=== PATIENT | male | born 1970 | race Hispanic/Latino ===

== ENCOUNTER 2024-05-25 01:44 | Observation (INO) | payer OTHER, SELFPAY ==
[2024-05-25] VITALS (17 sets, daily range): BP systolic 118–158; BP diastolic 59–98; PULSE 67–87; RESP 12–18; TEMP 36.7–36.8; O2SAT 95–100; BMI 33.7
--- NOTE | 2024-05-25 | ECHO_ITS ---
Patient Info Name: Jass Naik Age: 53 years : 1970 Gender: Male Ht: 66 in Wt: 205 lbs BSA: 2.12 m2 HR: 72 bpm BP: 118 / 79 mmHg Heart Rhythm: Sinus Rhythm Technical Quality: Fair Exam Date: 05/25/2024 9:27 AM Exam Location: Echo Lab Patient Status: Inpatient Admit Date: 05/25/2024 Staff Ordering Physician: Johny Barnes MD Macerator Operator: Rama Lopez RDCS Attending Provider: Johny Barnes MD Exam Type: CA echo doppler w bubble study Study Info Indications - TIA Complete two-dimensional, color flow and Doppler transthoracic echocardiogram is performed with agitated saline. Contrast/Agitated Saline Contrast/Ag. Saline: Agitated Saline Amount: 15.00 ml Administered By: Rin Mariscal RDCS IV Access Condition: patent with no signs of infiltration New IV Access: Antecubital Space and Left Summary 1. Left ventricular chamber dimension is normal. 2. Left ventricular systolic function is normal, estimated at 60-65%. 3. There is mildly increased left ventricular wall thickness. 4. The left ventricular diastolic function is grade I diastolic dysfunction. 5. Right ventricular systolic function is normal. 6. Intact interatrial septum visualized by color flow and agitated saline imaging. Negative bubble study. 7. There is mild mitral valve regurgitation. 8. There is mild tricuspid valve regurgitation. Left Ventricle Left ventricular chamber dimension is normal. Left ventricular systolic function is normal, estimated at 60-65%. There is mildly increased left ventricular wall thickness. The left ventricular diastolic function is grade I diastolic dysfunction. Right Ventricle Right ventricular chamber dimension is normal. Right ventricular systolic function is normal. Left Atria Left atrial chamber dimension is normal. Right Atria Right atrial chamber dimension is normal. Atrial Septum Intact interatrial septum visualized by color flow and agitated saline imaging. Negative bubble study. Aortic Valve The aortic valve is probable trileaflet. There is no aortic valve stenosis. There is no aortic valve regurgitation. Pulmonic Valve The pulmonic valve is not well visualized. There is no pulmonic regurgitation. Mitral Valve There is mild mitral valve regurgitation. Tricuspid Valve There is mild tricuspid valve regurgitation. Pericardium/Pleural There is no pericardial effusion. Inferior Vena Cava Inferior vena cava is not well visualized. Aorta The aortic root size at the sinus of Valsalva is normal. Left Ventricular Outflow Tract Name Value Normal LVOT 2D LVOT Diameter 2.3 cm LVOT Doppler LVOT Peak Gradient 5 mmHg LVOT Mean Gradient 2 mmHg LVOT VTI 20 cm LVOT VTI/AV VTI Ratio 0.8 LVOT Stroke Volume 87 ml LVOT CO 6.1 l/min LVOT CI 2.9 l/min/m2 Pulmonic Valve Name Value Normal RVOT Doppler RVOT Peak Gradient 2 mmHg PV Doppler PV Peak Gradient 4 mmHg Mitral Valve Name Value Normal MV Doppler MV Decel [place] 396 cm/s2 MV PHT 52 ms MV Area (PHT) 4.2 cm2 4.0-5.0 MV Diastolic Function MV E Peak Velocity 71 cm/s MV A Peak Velocity 63 cm/s MV E/A 1.1 MV Decel Time 180 ms MV Annular TDI MV E/e' (Septal) 9.8 <=8.0 MV E/e' (Lateral) 7.4 <=8.0 MV E/e' (Average) 8.6 Tricuspid Valve Name Value Normal TV Regurgitation Doppler TR Peak Velocity 230 cm/s TR Peak Gradient 21 mmHg Aortic Valve Name Value Normal AV Doppler AV Peak Velocity 127 cm/s AV Peak Gradient 6 mmHg AV Mean Gradient 4 mmHg AV VTI 25 cm AV Area (Cont Eq VTI) 3.5 cm2 >=3.0 AV Area (Cont Eq [place]) 3.7 cm2 AV Regurgitation 2D LVOT Area 4.3 cm2 Ventricles Name Value Normal LV Dimensions 2D/MM IVS Diastolic Thickness (2D) 1.2 cm 0.6-1.0 LVID Diastole (2D) 4.6 cm 4.2-5.8 LVIW Diastolic Thickness (2D) 1.0 cm 0.6-1.0 LVID Systole (2D) 3.1 cm 2.5-4.0 LVOT Diameter 2.3 cm LV Mass (2D Cubed) 187.68 g 88.00-224.00 LV Mass Index (2D Cubed) 89 g/m2 49-115 Relative Wall Thickness (2D) 0.46 LV Fractional Shortening/Ejection Fraction 2D/MM LV Fractional Shortening (2D) 33 % 25-43 LV EF (2D Teicholz) 62 % 52-72 LV Diastolic Volume (4C MOD) 140 ml LV EF (4C MOD) 70 % LV Diastolic Volume (2C MOD) 132 ml LV EF (2C MOD) 65 % LV Diastolic Volume (BP MOD) 139 ml 62-150 LV Diastolic Volume Index (BP MOD) 66 ml/m2 34-74 LV Systolic Volume (BP MOD) 44 ml 21-61 LV Systolic Volume Index (BP MOD) 21 ml/m2 11-31 LV EF (BP MOD) 68 % 52-72 LV Diastolic Length (4C) 8.8 cm LV Systolic Length (4C) 6.1 cm LV Stroke Volume (4C MOD) 98 ml Atria Name Value Normal LA Dimensions LA Volume (4C A-L) 55 ml LA Volume (BP A-L) 58 ml RA Dimensions RA Area (4C) 12.0 cm2 <=18.0 Report Signatures
--- NOTE | ~2024-05-25 | CT_ITS ---
CT ANGIOGRAM NECK AND HEAD History: Left-sided numbness. Technique: Serial spiral axial images through the head and neck were obtained during arterial phase I V injection of 100 cc of Omnipaque 350. 3-D postprocessing and MIP images were then reconstructed on the remote workstation. Dose reduction technique was used on this scan by utilizing automated exposur e control and iterative reconstruction technique. The dose-length product (DLP) was 1129.72 mGy-cm. CTA neck findings: Bilateral vertebral arteries are patent. Bilateral common carotid, internal carot id, external carotid arteries are patent. No large vessel occlusion or stenosis. No aneurysm. The pro ximal right internal carotid artery demonstrates 0% stenosis relative to the normal distal artery lum en diameter. The proximal left internal carotid artery demonstrates 0% stenosis relative to the adebayo l distal artery lumen diameter. CTA head findings: Distal vertebral arteries, basilar artery, and posterior cerebral arteries are pat ent. Distal internal carotid arteries, middle cerebral arteries, and anterior cerebral arteries are p atent. No large vessel occlusion or stenosis. No aneurysm. Impression: No significant abnormality seen. Reviewed, dictated and finalized at location . Impression: No significant abnormality seen.
--- NOTE | ~2024-05-25 | CT_ITS ---
Non-contrast Head CT History: Left-sided numbness Technique: Axial non-contrast imaging of the brain was performed. Dose reduction technique was used on this scan by utilizing automated exposure control and iterative reconstruction technique. The dose -length product (DLP) was 681.00 mGy-cm. Findings: There is no evidence of intracranial hemorrhage, mass lesion, or acute infarct. Brain par enchyma appears normal. The ventricles and subarachnoid spaces are normal in size. The calvarium ap pears normal. The visualized paranasal sinuses and mastoid air cells are clear. Impression: No significant abnormality seen. Reviewed, dictated and finalized at location . Impression: No significant abnormality seen.
--- NOTE | ~2024-05-25 | XR_ITS ---
Portable chest x-ray Comparison: None Clinical History: Left-sided numbness Findings: Lungs are clear, without focal consolidation or pleural effusion. Cardiomediastinal silho uette is unremarkable. Bones and soft tissues are unremarkable. Impression: Normal chest. Reviewed, dictated and finalized at location . Impression: Normal chest.
--- NOTE | ~2024-05-25 | MR_ITS ---
MRI of the brain Clinical History: TIA Technique: Axial and sagittal T1-weighted images were acquired. These were followed by axial T2-weigh davonte, diffusion weighted, gradient, and FLAIR images. Findings: No abnormal signal seen in the brain parenchyma. No acute infarct, internal hemorrhage or m ass lesion. Ventricles and subarachnoid spaces are unremarkable. Orbits are unremarkable. Paranasal sinuses and m astoid air cells are clear. Major intracranial flow voids appear intact. Sagittal midline structures are intact. IMPRESSION: Normal exam. Reviewed, dictated and finalized at location M. IMPRESSION: Normal exam.
--- NOTE | 2024-05-25 01:50 | ECG_ITS ---
Test Date: 2024-05-25 01:54:26 Measurements Intervals [place] Rate: 84 P: 29 MN: 163 QRS: 18 QRSD: 96 T: 39 QT: 355 QTc: 422 Interpretive Statements SINUS RHYTHM DELAYED PRECORDIAL R/S TRANSITION BASELINE ARTIFACT- I, II, III, AVR, AVL, AVF, V1-V6 BORDERLINE ECG No previous ECG available for comparison Electronically Signed On 05-25-2024 14:56:47 CDT by Masoud Griffith D.O.
[2024-05-25 03:45] LABS: Basophils Percent Auto 0.5 % (0.2-1.2); Eosinophils Absolute Auto 0.1 K/mm3 (0-0.3); Eosinophils Percent Auto 1.3 % (0-4.4); Hematocrit 40.5 % (42.0-52.0); Hemoglobin 14.9 g/dL (14.0-18.0); Immature Granulocyte Absolute 0.02 K/mm3 (0.00-0.031); Immature Granulocyte Percent A 0.4 % (0-0.5); Lymphocytes Absolute Auto 1.85 K/mm3 (0.9-3.2); Lymphocytes Percent Auto 33.4 % (18.3-44.2); Mean Corpuscular HGB Conc 36.8 g/dl (32-36); Mean Corpuscular Hemoglobin 33.6 pg (26-34); Mean Corpuscular Volume 91.4 fl (80-100); Mean Platelet Volume 11.7 fl (7.4-10.4); Monocytes Absolute Auto 0.5 K/mm3 (0.1-0.6); Monocytes Percent Auto 8.7 % (2.6-8.5); Neutrophils Absolute Auto 3.1 K/mm3 (1.3-6.7); Neutrophils Percent Auto 55.7 % (45.5-73.1); Platelet Count Result 169 k/mm3 (150-375); Red Blood Count 4.43 M/mm3 (4.6-6.20); Red Cell Distribution Width 12.4 % (11.5-14.5); White Blood Count 5.5 K/mm3 (4.5-10.0)
[2024-05-25 03:52] LABS: Add Urine Microscopic? YES; Appearance Urine Clear (Clear); Bacteria Urine None Seen /hpf; Bilirubin Urine Negative (Negative); Blood Urine Negative (Negative); Color Urine Yellow (Yellow); Glucose Urine UA Negative (Negative); Ketones Urine Trace mg/dL (Negative); Leukocyte Esterase Ur Negative LEU/UL (Negative); Nitrate Urine Negative (Negative); Non Pathogenic Casts 0-2; Protein Urine Trace mg/dL (Negative); RBC Urine 0-2 /hpf (0-2); Specific Grav Ur 1.019 (1.001-1.035); Squamous Epithelial Cell Urine None Seen /hpf (Few); Urobilinogen Urine 0.2 mg/dL (<2.0); WBC Urine 0-5 /hpf (0-3); pH Urine 5.5 (5.0-9.0)
[2024-05-25 04:02] LABS: Amphetamine Screen Urine Negative (Negative); Barbiturate Screen Urine Negative (Negative); Benzodiazepines Screen Urine Negative (Negative); Cannabinoid Screen Urine Negative (Negative); Cocaine Screen Urine Negative (Negative); Methadone Screen Urine Negative (Negative); Opiate Screen Urine Negative (Negative); Phencyclidine Screen Urine Negative (Negative)
--- NOTE | 2024-05-25 04:39 | ED_ITS ---
HPI - Neuro Symptoms/Deficit General Chief Complaint: Suspected CVA Stated Complaint: Numbness/Tingling L side Time Seen by Provider: 05/25/24 02:45 Source: patient Mode of arrival: EMS Limitations: language barrier ([facility] language services used to translate) History of Present Illness HPI Narrative: This is a 53-year-old male, with history of high intensity mm hyperlipidemia o'clock at a brought in by EMS with complaints of left-sided numbness and tingling. Patient states he went to sleep at approximately 23:00. He woke up at approximately 12:45 to 01:00 o'clock and felt left-sided numbness and tingling. He denies weakness. He states the sensation lasted approximately an hour and has since gone. He denies change/loss of vision, loss of consciousness, chest pain, known trauma, neck pain or shortness of breath. He has no other complaints at this time. Related Data Allergies Allergy/AdvReac Type Severity Reaction Status Date / Time atorvastatin AdvReac Intermediate Headache Verified 05/25/24 02:08 Review of Systems 2 Review of Systems: All systems reviewed & are unremarkable except as noted in HPI and below PMFSH Past Medical History Medical History Hyperlipidemia Hypertension Surgical History Surgical History No significant past surgical history Social History Social History Smoking status: Never smoker Alcohol intake: never Substance use: never Exam 2 Narrative: GENERAL: Well-developed, well-nourished, and in no acute distress. HEAD: Normocephalic, atraumatic. EYES: PERRLA and EOMI. CHEST: Clear to auscultation. No respiratory distress. No wheezes rales or rhonchi HEART: Regular rate and rhythm. No murmur heard. Normal peripheral pulses. ABDOMEN: Soft, nontender, nondistended, normal active bowel sounds. EXTREMITIES: Normal range of motion. No edema. SKIN: Warm, dry, no rash. NEURO: Alert and oriented x3. No focal deficit. Moving all 4 limbs spontaneously. Strength 5/5 in all extremities, sensation intact bilaterally, no noted ataxia PSYCH: Normal mood and affect. Course Course Emergency Course: 03:28 Initial NIH 0 05:24 - CT head negative for acute intracranial process. CBC unremarkable. Urinalysis unremarkable urine drug screen unremarkable. Chemistries pending due to recurrent hemolysis. I discussed the patient with neurologist, Dr. Clark request CT angiogram, recommends aspirin and agrees to consult. 07:18 - CT angiogram of the head and neck negative for aneurysm or obstruction. I discussed the patient with hospitalist, Dr. Peacock who accepts admission Vital Signs Vital signs: Vital Signs Temperature 98.2 F 05/25/24 01:45 Pulse Rate 83 05/25/24 01:45 Respiratory Rate 16 05/25/24 01:45 Blood Pressure 151/96 H 05/25/24 01:45 Pulse Oximetry 99 05/25/24 01:45 Oxygen Delivery Room Air 05/25/24 01:45 Temperature 98.2 F 05/25/24 01:45 Pulse Rate 74 05/25/24 06:30 Respiratory Rate 15 05/25/24 06:30 Blood Pressure 119/78 05/25/24 06:30 Pulse Oximetry 97 05/25/24 06:30 Oxygen Delivery Room Air 05/25/24 02:02 MDM - Neuro Symptoms/Deficit MDM Narrative Medical decision making narrative: Plan: Labs, imaging, EKG, neurology consultation, reassess Differential Diagnosis Differential diagnosis: Likely subarachnoid hemorrhage, cerebrovascular accident, transient cerebral ischemia and other (Metabolic abnormality, radiculopathy, drug/intoxication, other) Lab Data 05/25/24 03:36 05/25/24 03:36 Labs: Lab Results 05/25/24 Range/Units 03:36 WBC 5.5 (4.5-10.0) K/mm3 RBC 4.43 L (4.6-6.20) M/mm3 Hgb 14.9 (14.0-18.0) g/dL Hct 40.5 L (42.0-52.0) % MCV 91.4 (80-100) fl MCH 33.6 (26-34) pg MCHC 36.8 H (32-36) g/dl RDW 12.4 (11.5-14.5) % Plt Count 169 (150-375) k/mm3 MPV 11.7 H (7.4-10.4) fl Immature Gran % (Auto) 0.4 (0-0.5) % Neut % (Auto) 55.7 (45.5-73.1) % Lymph % (Auto) 33.4 (18.3-44.2) % [place] % (Auto) 8.7 H (2.6-8.5) % Eos % (Auto) 1.3 (0-4.4) % Baso % (Auto) 0.5 (0.2-1.2) % Lymph # (Auto) 1.85 (0.9-3.2) K/mm3 [place] # (Auto) 0.5 (0.1-0.6) K/mm3 Eos # (Auto) 0.1 (0-0.3) K/mm3 Baso # (Auto) 0.0 (0.0-0.1) K/mm3 Abs Immat Gran (auto) 0.02 (0.00-0.031) K/mm3 Absolute Neuts (auto) 3.1 (1.3-6.7) K/mm3 Absolute Nucleated RBC 0.000 (0.0-0.012) K/mm3 Nucleated RBC % 0.0 (0.0-0.2) % Sodium Pending Potassium Pending Chloride Pending Carbon Dioxide Pending Anion Gap Pending BUN Pending Creatinine Pending Estim Creat Clear Calc Pending Estimated GFR Pending Glucose Pending Calcium Pending Total Bilirubin Pending AST Pending ALT Pending Alkaline Phosphatase Pending Total Protein Pending Albumin Pending Urine Color Yellow (Yellow) Urine Appearance Clear (Clear) Urine pH 5.5 (5.0-9.0) Ur Specific [place] 1.019 (1.001-1.035) Urine Protein Trace (Negative) mg/dL Urine Glucose (UA) Negative (Negative) mg/dL Urine Ketones Trace H (Negative) mg/dL Ur Blood (Man) Negative (Negative) Urine Nitrate Negative (Negative) Urine Bilirubin Negative (Negative) Urine Urobilinogen 0.2 (<2.0) mg/dL Leukocyte Esterase Rfl Negative (Negative) DARIAN/UL Urine RBC 0-2 (0-2) /hpf Urine WBC 0-5 (0-3) /hpf Ur Squamous Epith Cells None seen (Few) /hpf Urine Bacteria None seen /hpf Urine Casts 0-2 Urine Opiates Screen Negative (Negative) Urine Methadone Screen Negative (Negative) Ur Barbiturates Screen Negative (Negative) Ur Phencyclidine Scrn Negative (Negative) Ur Amphetamine Screen Negative (Negative) U Benzodiazepines Scrn Negative (Negative) Urine Cocaine Screen Negative (Negative) U Cannabinoids Screen Negative (Negative) ECG Data EKG #1: Attestation: I personally reviewed and interpreted this ECG as follows: ECG completion date: 05/25/24 ECG completion time: 01:54 Prior ECG tracings: not available for review Interpretation: Sinus rhythm, rate 84, normal axis, no ST segment elevations or T-wave inversions concerning for ischemia, normal intervals with QTC of 396. Discharge Plan Discharge Clinical Impression: TIA (transient ischemic attack), Left sided numbness Patient Disposition: Still a Patient Condition: Serious Patient Language: Macedonian Follow-up/Referrals: UNKNOWN,DOCTOR [Primary Care Provider] - Time of Disposition: 07:20
--- NOTE | 2024-05-25 07:45 | PC.NURSE ---
this RN has called 2 about pt pending chemistry labs. lab said it was running and they were working on it now
[2024-05-25 07:52] LABS: Alanine Aminotransferase 51 U/L (6-50); Albumin Level 3.9 g/dL (3.5-5.1); Alkaline Phosphatase 41 U/L (38-126); Anion Gap 11 mmol/L (4-12); Aspartate Amino Transferase 51 U/L (17-59); Bilirubin,Total 0.8 mg/dL (0.2-1.3); Blood Urea Nitrogen 12 mg/dL (9-20); Calcium 8.4 mg/dL (8.4-10.2); Carbon Dioxide 19 mmol/L (22-30); Chloride 104 mmol/L (98-107); Estimated CRCL calculation 150 ml/min; Estimated Glomerular Filt Rate > 60; Glucose 148 mg/dL (65-110); Potassium 4.4 mmol/L (3.4-5.0); Sodium 134 mmol/L (137-145)
--- NOTE | 2024-05-25 11:18 | P.HP_ITS ---
H&P: HPI History of Present Illness Date/Time: 05/25/24 11:18 Chief Complaint: Left upper extremity tingling numbness Narrative: Patient is 53 years old male with history of hypertension, diabetes, HLD presented with left-sided upper extremity numbness and tingling. Patient notes the symptoms started around 1 am and last for about 1 hour. Denies any vision changes, weakness. He denies any fever, chills chest pain, shortness the 5th, pleural pain, nausea vomiting. Patient notes he had similar problem couple years ago but he did not see any physician for that. Patient has history of diabetes but does not check blood sugar regularly. He is taking metformin. He also has history of hypertension. Inthe ER. Vital sign was stable, blood pressure 151/96. Lab tests showed WBC 5.5, hemoglobin 14.9, sodium 134, creatinine 0.5. UDS negative. Neurology was consulted. CTA was unremarkable. Patient was admitted for further workup including echo and MRI. Review of Systems Review of Systems: All systems reviewed & are unremarkable except as noted in HPI and below PMFSH Past Medical History Medical History Hyperlipidemia Hypertension Surgical History Surgical History No significant past surgical history Social History Social History Years smoked: 3 Smoking status: Current some day smoker Tobacco type: cigarettes Second hand tobacco smoke exposure: Yes Alcohol intake: current Drinks per week: 30 Substance use: never Substance use type: does not use Do You Feel Safe in your Home?: Yes Lack of Transportation: No Lack of Food: Never True Current Housing: I Have Housing Concerned About Future Housing: No Difficulty Paying Gas/Electric Bills: No Difficulty Paying for Meds: No Currently Unemployed: No Education: Grade School Difficulty w/ Childcare or Family Care: No Spiritual care concerns: No Meds Home Medications and Allergies Home Medications ?Medication ?Instructions ?Recorded ?Confirmed ?Type aspirin 81 mg tablet,delayed 81 mg PO DAILY 05/25/24 05/25/24 History release (Adult Low Dose Aspirin) metformin 500 mg tablet 500 mg PO DAILY 05/25/24 05/25/24 History metoprolol succinate 100 mg 100 mg PO DAILY 05/25/24 05/25/24 History tablet,extended release 24 hr omega 4-bat-mlu-fish oil 1,000 mg 1 cap PO DAILY 05/25/24 05/25/24 History (120 mg-180 mg) capsule (Fish Oil) Allergies Allergy/AdvReac Type Severity Reaction Status Date / Time atorvastatin AdvReac Intermediate Headache Verified 05/25/24 02:08 Vital Signs Vital Signs - 24 hr 05/25/24 01:45 05/25/24 02:02 05/25/24 02:05 Temperature 98.2 F Pulse Rate 83 84 Respiratory Rate 16 Blood Pressure 151/96 H Pulse Oximetry 99 99 Oxygen Delivery Room Air Room Air 05/25/24 02:06 05/25/24 02:16 05/25/24 02:31 Temperature Pulse Rate 87 82 80 Respiratory Rate 14 18 18 Blood Pressure 151/91 H 158/95 H 146/92 H Pulse Oximetry 99 98 97 Oxygen Delivery 05/25/24 02:46 05/25/24 03:40 05/25/24 03:46 Temperature Pulse Rate 80 83 80 Respiratory Rate 18 12 18 Blood Pressure 136/77 131/84 143/81 H Pulse Oximetry 100 95 97 Oxygen Delivery 05/25/24 04:16 05/25/24 05:00 05/25/24 05:45 Temperature Pulse Rate 74 67 75 Respiratory Rate 18 16 18 Blood Pressure 147/89 H 118/59 L 143/98 H Pulse Oximetry 97 100 97 Oxygen Delivery 05/25/24 06:30 05/25/24 07:15 Temperature Pulse Rate 74 72 Respiratory Rate 15 16 Blood Pressure 119/78 118/79 Pulse Oximetry 97 99 Oxygen Delivery Exam Narrative: GENERAL: Well-developed, well-nourished, and in no acute distress. HEAD: Normocephalic, atraumatic. EYES: PERRLA and EOMI. CHEST: Clear to auscultation. No respiratory distress. No wheezes rales or rhonchi HEART: Regular rate and rhythm. No murmur heard. Normal peripheral pulses. ABDOMEN: Soft, nontender, nondistended, normal active bowel sounds. EXTREMITIES: Normal range of motion. No edema. SKIN: Warm, dry, no rash. NEURO: Alert and oriented x3. No focal deficit. Moving all 4 limbs spontaneously. Strength 5/5 in all extremities, sensation intact bilaterally, no noted ataxia PSYCH: Normal mood and affect. H&P: Results Labs Labs: Short CBC 05/25/24 Range/Units 03:36 WBC 5.5 (4.5-10.0) K/mm3 Hgb 14.9 (14.0-18.0) g/dL Hct 40.5 L (42.0-52.0) % Plt Count 169 (150-375) k/mm3 BMP 05/25/24 06:16 Sodium 134 L Potassium 4.4 Chloride 104 Carbon Dioxide 19 L BUN 12 Creatinine 0.52 L Glucose 148 H Calcium 8.4 Liver Function 05/25/24 Range/Units 06:16 Total Bilirubin 0.8 (0.2-1.3) mg/dL AST 51 (17-59) U/L ALT 51 H (6-50) U/L Alkaline Phosphatase 41 (38-126) U/L Albumin 3.9 (3.5-5.1) g/dL Urine 05/25/24 Range/Units 03:36 Urine Color Yellow (Yellow) Urine Appearance Clear (Clear) Urine pH 5.5 (5.0-9.0) Ur Specific [place] 1.019 (1.001-1.035) Urine Protein Trace (Negative) mg/dL Urine Glucose (UA) Negative (Negative) mg/dL Assessment and Plan Assessment and plan (1) Left sided numbness: Code(s): R20.0 - Anesthesia of skin Status: Acute (2) TIA (transient ischemic attack): Code(s): G45.9 - Transient cerebral ischemic attack, unspecified Status: Acute (3) Obesity: Code(s): E66.9 - Obesity, unspecified Status: Acute Plan Left-sided tingling numbness Possible TIA CTA negative Follow echo on MRI report Will start aspirin and Plavix Permissive hypertension Continue to monitor DM 2 SSI and accucheks Continue to monitor HTN Permissive hypertension Mild hyponatremia Monitor Obesity Lifestyle modification
[2024-05-25] MEDS: CLOPIDOGREL BISULFATE 300 MG TABLET PO (13:02)
[2024-05-25 13:16] LABS: Glucose Point of Care 124 mg/dl (65-105)
--- NOTE | 2024-05-25 14:36 | P.DS_ITS ---
DS: Admitting Diagnosis Discharge Date 05/25/24 Admitting Diagnosis TIA DS: Discharge Diagnosis Discharge Diagnosis (1) Left sided numbness: Code(s): R20.0 - Anesthesia of skin Status: Acute (2) TIA (transient ischemic attack): Code(s): G45.9 - Transient cerebral ischemic attack, unspecified Status: Acute (3) Obesity: Code(s): E66.9 - Obesity, unspecified Status: Acute Plan Left-sided tingling numbness Possible TIA CTA negative MRI negative Follow echo report received aspirin and Plavix intolerance to statin Permissive hypertension Continue to monitor DM 2 SSI and accucheks Continue to monitor HTN Permissive hypertension Mild hyponatremia Monitor Obesity Lifestyle modification DS: Summary Hospital Course Hospital Course: Narrative: Patient is 53 years old male with history of hypertension, diabetes, HLD presented with left-sided upper extremity numbness and tingling. Patient notes the symptoms started around 1 am and last for about 1 hour. Denies any vision changes, weakness. He denies any fever, chills chest pain, shortness the 5th, pleural pain, nausea vomiting. Patient notes he had similar problem couple years ago but he did not see any physician for that. Patient has history of diabetes but does not check blood sugar regularly. He is taking metformin. He also has history of hypertension. Inthe ER. Vital sign was stable, blood pressure 151/96. Lab tests showed WBC 5.5, hemoglobin 14.9, sodium 134, creatinine 0.5. UDS negative. Neurology was consulted. CTA was unremarkable. Patient was admitted for further workup including echo and MRI. 05/25/24 Patient was seen examined at bedside. he is felling fine , denies any chest pain , SOB, abd pain, N/V. CTA and MRI unremarkable. Echo unremarkable. neurologist recs 6 W plavix Status at Discharge Overall status at discharge: patient is back to baseline Time Spent with Patient Time attestation: Total time spent providing and/or coordinating discharge services: Time spent: Greater than 30 minutes Exam Narrative: GENERAL: Well-developed, well-nourished, and in no acute distress. HEAD: Normocephalic, atraumatic. EYES: PERRLA and EOMI. CHEST: Clear to auscultation. No respiratory distress. No wheezes rales or rhonchi HEART: Regular rate and rhythm. No murmur heard. Normal peripheral pulses. ABDOMEN: Soft, nontender, nondistended, normal active bowel sounds. EXTREMITIES: Normal range of motion. No edema. SKIN: Warm, dry, no rash. NEURO: Alert and oriented x3. No focal deficit. Moving all 4 limbs spontaneously. Strength 5/5 in all extremities, sensation intact bilaterally, no noted ataxia PSYCH: Normal mood and affect. DS: Data Data Completed and Pending Labs on day of discharge: Labs from last 24 hours 05/25/24 05/25/24 05/25/24 13:12 06:16 03:36 WBC 5.5 RBC 4.43 L Hgb 14.9 Hct 40.5 L MCV 91.4 MCH 33.6 MCHC 36.8 H RDW 12.4 Plt Count 169 MPV 11.7 H Immature Gran % (Auto) 0.4 Neut % (Auto) 55.7 Lymph % (Auto) 33.4 [place] % (Auto) 8.7 H Eos % (Auto) 1.3 Baso % (Auto) 0.5 Lymph # (Auto) 1.85 [place] # (Auto) 0.5 Eos # (Auto) 0.1 Baso # (Auto) 0.0 Abs Immat Gran (auto) 0.02 Absolute Neuts (auto) 3.1 Absolute Nucleated RBC 0.000 Nucleated RBC % 0.0 Sodium 134 L Potassium 4.4 Chloride 104 Carbon Dioxide 19 L Anion Gap 11 BUN 12 Creatinine 0.52 L Estim Creat Clear Calc 150 Estimated GFR > 60 Glucose 148 H POC Capillary Glucose 124 H Calcium 8.4 Total Bilirubin 0.8 AST 51 ALT 51 H Alkaline Phosphatase 41 Total Protein 7.0 Albumin 3.9 Urine Color Yellow Urine Appearance Clear Urine pH 5.5 Ur Specific [place] 1.019 Urine Protein Trace Urine Glucose (UA) Negative Urine Ketones Trace H Ur Blood (Man) Negative Urine Nitrate Negative Urine Bilirubin Negative Urine Urobilinogen 0.2 Leukocyte Esterase Rfl Negative Urine RBC 0-2 Urine WBC 0-5 Ur Squamous Epith Cells None seen Urine Bacteria None seen Urine Casts 0-2 Urine Opiates Screen Negative Urine Methadone Screen Negative Ur Barbiturates Screen Negative Ur Phencyclidine Scrn Negative Ur Amphetamine Screen Negative U Benzodiazepines Scrn Negative Urine Cocaine Screen Negative U Cannabinoids Screen Negative Discharge Plan Discharge Consulting providers: Rinku Donis Discharging Clinician: Johny Barnes Patient Disposition: Home Activity: as tolerated Diet: heart healthy Discharge Instructions: follow with PCP in one week. check your blood sugar, blood pressure and heart rate regularly and report to the pcp. continue ASA. Continue plavix for 6 W starting tomorrow Patient Instructions: Antibiotic Form Patient Language: Japanese Stand Alone Forms: General Discharge Information Follow-up/Referrals: UNKNOWN,DOCTOR [Primary Care Provider] - Discharge Medications: New clopidogrel [Plavix] 75 mg tablet 75 mg PO DAILY Qty: 42 0RF Continued metoprolol succinate 100 mg tablet extended release 24 hr 100 mg PO DAILY metformin 500 mg tablet 500 mg PO DAILY Patient Comments: sometimes more aspirin [Adult Low Dose Aspirin] 81 mg tablet,delayed release (DR/EC) 81 mg PO DAILY omega 1-xre-lew-fish oil [Fish Oil] 1,000 (120-180) mg capsule 1 cap PO DAILY Date of admission: 05/25/24 07:21 Primary Care Provider: UNKNOWN,DOCTOR Admitting Provider: Juancarlos Peacock Attending physician on admission: Johny Barnes Condition: Improved
[2024-05-25 16:41] LABS: Glucose Point of Care 202 mg/dl (65-105)
[2024-05-25] MEDS: INSULIN ASPART (*BKC) 100 UNITS/ML SUB-Q (17:13)
== END 2024-05-25 21:00 | disposition home or self-care (01) ==
LOC: ANHED 07:20 → ANH3MED 07:47
PROVIDERS: Admitting Provider General Practice; Emergency Provider Preventive Medicine Aerospace Medicine; Visit Provider Internal Medicine
DX: R20.0 Anesthesia of skin (principal); R20.2 Paresthesia of skin; E11.9 Type 2 diabetes mellitus without complications; I10 Essential (primary) hypertension; E78.5 Hyperlipidemia, unspecified; E87.1 Hypo-osmolality and hyponatremia; E66.9 Obesity, unspecified; Z68.33 Body mass index [BMI] 33.0-33.9, adult; F17.210 Nicotine dependence, cigarettes, uncomplicated; Z79.82 Long term (current) use of aspirin; Z79.84 Long term (current) use of oral hypoglycemic drugs; Z79.899 Other long term (current) drug therapy
CPT/HCPCS: 36415; 70450; 70496; 70498; 70551; 71045; 80053; 80307; 81001; 82948; 85025; 93005; 93306; 96375; 99285; A9270; G0378; J1815; Q9967